=== PATIENT | male | born 1960 | race Caucasian/White ===

== ENCOUNTER 2023-12-02 13:12 | Outpatient (CLI) | payer BC | END 2023-12-02 13:13 | disposition home or self-care (01) | LOC: SCSMRI 13:12 | PROVIDERS: ATTEND Orthopaedic Surgery | DX: M19.032 Primary osteoarthritis, left wrist (principal); T14.8XXA Other injury of unspecified body region, initial encounter; R93.7 Abnormal findings on diagnostic imaging of other parts of musculoskeletal system ==